=== PATIENT | female | born 1990 | race Caucasian/White ===

== ENCOUNTER 2016-07-07 22:32 | Emergency (ER) | payer SELFPAY ==
[~2016-07-07] VITALS: Ht 157.5 cm; Wt 81.0 kg
[~2016-07-07 22:32] MED LIST: AMOXICILLIN500 MG PO; CIPROFLOXACN500 MG PO; ULTRAM50 M1 PO
[2016-07-08] MEDS ORDERED: IMITREX25 MG PO (00:20)
[2016-07-08 00:52] VITALS: BP 128/80
== END 2016-07-08 00:52 | disposition home or self-care (01) | DRG 103 ==
LOC: ED 22:32
DX: G43.909 Migraine, unspecified, not intractable, without status migrainosus (principal)

== ENCOUNTER 2017-03-09 15:37 | Emergency (ER) | payer SELFPAY ==
[~2017-03-09] VITALS: Ht 157.5 cm; Wt 86.8 kg
[~2017-03-09 15:37] MED LIST changes: +IMITREX25 MG PO
[2017-03-09 17:09] LABS: HEMATOCRIT 36.7 % (37.0-47.0); HEMOGLOBIN 12.4 g/dl (12.0-16.0); IMMATURE GRANULOCYTES 0.3 % (0.0-1.0); MEAN CELL VOLUME 91.8 fL CALC (80.0-100.0); MEAN CORPUSCULAR HGB CONC 33.8 g/L CALC (32.0-36.0); NEUT# 6.4 thou/uL (2.00-7.15)
[2017-03-09 18:30] LABS: URINE BILIRUBIN - DIPSTICK NEGATIVE (NEGATIVE); URINE BLOOD DIPSTICK TRACE-INTACT (NEGATIVE); URINE CLARITY CLEAR; URINE COLOR YELLOW; URINE GLUCOSE - DIPSTICK NEGATIVE (NEGATIVE); URINE KETONE NEGATIVE (NEGATIVE); URINE LEUK ESTERASE TRACE (NEGATIVE); URINE NITRITE - DIPSTICK NEGATIVE (Negative); URINE PH 6.5 (4.5-8.0); URINE PROTEIN - DIPSTICK NEGATIVE (NEG-TRACE); URINE SPECIFIC GRAVITY 1.015
[2017-03-09] MEDS ORDERED: BENTYL20 MG PO (18:36)
[2017-03-09 18:39] VITALS: BP 115/69
== END 2017-03-09 18:50 | disposition home or self-care (01) | DRG 392 ==
LOC: ED 15:37
PROVIDERS: Emergency Medicine
DX: R10.32 Left lower quadrant pain (principal); R19.7 Diarrhea, unspecified

== ENCOUNTER 2017-04-09 02:02 | Emergency (ER) | payer SELFPAY ==
[~2017-04-09] VITALS: Ht 157.5 cm; Wt 100.0 kg
[~2017-04-09 02:02] MED LIST changes: +BENTYL20 MG PO
[2017-04-09 02:57] LABS: URINE BILIRUBIN - DIPSTICK NEGATIVE (NEGATIVE); URINE BLOOD DIPSTICK MODERATE (NEGATIVE); URINE COLOR YELLOW; URINE GLUCOSE - DIPSTICK NEGATIVE (NEGATIVE); URINE KETONE NEGATIVE (NEGATIVE); URINE LEUK ESTERASE NEGATIVE (NEGATIVE); URINE NITRITE - DIPSTICK NEGATIVE (Negative); URINE PH 5.5 (4.5-8.0); URINE PROTEIN - DIPSTICK NEGATIVE (NEG-TRACE); URINE SPECIFIC GRAVITY 1.025
[2017-04-09 02:58] LABS: URINE CLARITY CLOUDY
[2017-04-09] MEDS ORDERED: ULTRAM50 M1 PO (03:04)
[2017-04-09] MEDS ORDERED: AMOXICILLIN500 MG PO (03:04)
[2017-04-09 03:05] LABS: URINE BACTERIA FEW hpf; URINE MUCUS FEW hpf (NONE-FEW); URINE SQUAMOUS EPITHELIAL CELL MODERATE EPI/hpf (0-FEW)
[2017-04-09 03:22] VITALS: BP 124/80
== END 2017-04-09 03:35 | disposition home or self-care (01) | DRG 158 ==
LOC: ED 02:02
PROVIDERS: Emergency Medicine
DX: K04.7 Periapical abscess without sinus (principal); N39.0 Urinary tract infection, site not specified; R50.9 Fever, unspecified

== ENCOUNTER 2021-08-09 21:07 | Emergency (ER) | payer SELFPAY ==
[~2021-08-09] VITALS: Ht 157.5 cm; Wt 100.0 kg
[2021-08-09 21:22] VITALS: BP 124/79
[2021-08-09 21:47] LABS: URINE BILIRUBIN - DIPSTICK NEGATIVE (NEGATIVE); URINE BLOOD DIPSTICK LARGE (NEGATIVE); URINE COLOR YELLOW; URINE GLUCOSE - DIPSTICK NEGATIVE (NEGATIVE); URINE KETONE NEGATIVE (NEGATIVE); URINE LEUK ESTERASE TRACE (NEGATIVE); URINE PH 5.5 (4.5-8.0); URINE PROTEIN - DIPSTICK 100 mg/dL (NEG-TRACE); URINE SPECIFIC GRAVITY >=1.030; URINE UROBILINOGEN - DIPSTICK 0.2 E.U./dL (0.2)
[2021-08-09 21:48] LABS: URINE NITRITE - DIPSTICK POSITIVE (Negative)
[2021-08-09 21:52] LABS: URINE BACTERIA FEW hpf; URINE SQUAMOUS EPITHELIAL CELL FEW EPI/hpf (0-FEW); URINE WBC 50-100 WBC/hpf (0-5)
[2021-08-09 21:56] LABS: HEMATOCRIT 40.7 % (37.0-47.0); HEMOGLOBIN 12.7 g/dl (12.0-16.0); IMMATURE GRANULOCYTES 0.2 % (0.0-5.0); MEAN CELL VOLUME 95.5 fL CALC (80.0-100.0); MEAN CORPUSCULAR HGB 29.8 pG CALC (26.0-32.0); MEAN CORPUSCULAR HGB CONC 31.2 g/dL CAL (32.0-36.0); NEUT# 9.8 thou/uL (2.00-7.15); RED BLOOD COUNT 4.26 mill/uL (4.20-5.60); RED CELL DISTRI WIDTH 12.3 % (11.5-15.5)
[2021-08-09 22:32] LABS: ALBUMIN 3.9 g/dL (3.2-5.0); ALKALINE PHOSPHATASE 68 u/l (38-126); ANION GAP 9 (6-22 (CALC)); BILIRUBIN, TOTAL 0.5 mg/dL (0.0-1.4); BUN 11 mg/dL (7-17); BUN/CREATININE RATIO 20 (12-20 (CALC)); CARBON DIOXIDE 29 mmol/l (22-30); CHLORIDE 105 mmol/l (95-108); CREATININE 0.6 mg/dL (0.5-1.0); GFR > 60 ML/MIN (>=60 (CALC)); GFR FOR AFR.AMER. > 60 ML/MIN (>=60 (CALC)); POTASSIUM 3.6 mmol/l (3.5-5.1); SGOT/AST 20 u/l (14-36); SODIUM 140 mmol/l (137-146)
[2021-08-09] MEDS ORDERED: BACTRIM DS1 TAB PO (22:51)
[2021-08-09] MEDS ORDERED: PYRIDIUM200 MG PO (22:51)
[2021-08-09 23:18] VITALS: BP 124/79
== END 2021-08-09 23:18 | disposition home or self-care (01) | DRG 690 ==
LOC: ED 21:07
PROVIDERS: Family Medicine
DX: N39.0 Urinary tract infection, site not specified (principal); B96.20 Unspecified Escherichia coli [E. coli] as the cause of diseases classified elsewhere

== ENCOUNTER 2021-09-22 15:02 | Emergency (ER) | payer SELFPAY ==
[~2021-09-22] VITALS: Ht 157.5 cm; Wt 93.0 kg
[2021-09-22] VITALS (9 sets, daily range): BP systolic 85–125; BP diastolic 45–78
[~2021-09-22 15:02] MED LIST changes: +BACTRIM DS1 TAB PO; +PYRIDIUM200 MG PO
[2021-09-22 16:05] LABS: URINE BILIRUBIN - DIPSTICK NEGATIVE (NEGATIVE); URINE BLOOD DIPSTICK SMALL (NEGATIVE); URINE COLOR YELLOW; URINE GLUCOSE - DIPSTICK NEGATIVE (NEGATIVE); URINE KETONE NEGATIVE (NEGATIVE); URINE LEUK ESTERASE NEGATIVE (NEGATIVE); URINE PH 6.5 (4.5-8.0); URINE PROTEIN - DIPSTICK NEGATIVE (NEG-TRACE); URINE SPECIFIC GRAVITY 1.015; URINE UROBILINOGEN - DIPSTICK 0.2 E.U./dL (0.2)
[2021-09-22 16:09] LABS: URINE NITRITE - DIPSTICK NEGATIVE (Negative)
[2021-09-22 16:16] LABS: URINE SQUAMOUS EPITHELIAL CELL FEW EPI/hpf (0-FEW); URINE WBC 0-2 WBC/hpf (0-5)
[2021-09-22 16:19] LABS: HEMATOCRIT 39.2 % (37.0-47.0); HEMOGLOBIN 12.7 g/dl (12.0-16.0); IMMATURE GRANULOCYTES 0.1 % (0.0-5.0); MEAN CELL VOLUME 94.9 fL CALC (80.0-100.0); MEAN CORPUSCULAR HGB 30.8 pG CALC (26.0-32.0); MEAN CORPUSCULAR HGB CONC 32.4 g/dL CAL (32.0-36.0); NEUT# 4.74 thou/uL (2.00-7.15); RED BLOOD COUNT 4.13 mill/uL (4.20-5.60)
[2021-09-22] MEDS ORDERED: TAMSULOSIN0.4 MG PO (17:37)
[2021-09-22] MEDS ORDERED: OXYCODONE5 M1 PO (17:37)
[2021-09-22 18:27] LABS: ALBUMIN 3.7 g/dL (3.2-5.0); ALKALINE PHOSPHATASE 64 u/l (38-126); ANION GAP 8 (6-22 (CALC)); BUN 8 mg/dL (7-17); BUN/CREATININE RATIO 14 (12-20 (CALC)); CARBON DIOXIDE 30 mmol/l (22-30); CHLORIDE 106 mmol/l (95-108); CREATININE 0.6 mg/dL (0.5-1.0); GFR FOR AFR.AMER. > 60 ML/MIN (>=60 (CALC)); GFR OTHER RACES > 60 ML/MIN (>=60 (CALC)); LIPASE 41 u/l (23-300); POTASSIUM 4.1 mmol/l (3.5-5.1); SGOT/AST 15 u/l (14-36); SODIUM 139 mmol/l (137-146); TOTAL PROTEIN 6.7 g/dL (6.3-8.2)
[2021-09-22 18:28] LABS: BILIRUBIN, TOTAL 0.2 mg/dL (0.0-1.4)
== END 2021-09-22 17:56 | disposition home or self-care (01) | DRG 694 ==
LOC: ED 15:02
PROVIDERS: Nurse Practitioner
DX: N20.0 Calculus of kidney (principal)

== ENCOUNTER 2022-01-28 17:10 | Emergency (ER) | payer SELFPAY ==
[~2022-01-28] VITALS: Ht 157.5 cm; Wt 80.0 kg
[2022-01-28] VITALS (9 sets, daily range): BP systolic 80–135; BP diastolic 44–79
[~2022-01-28 17:10] MED LIST changes: +OXYCODONE5 M1 PO; +TAMSULOSIN0.4 MG PO
[2022-01-28] MEDS ORDERED: BIRTH CONTROL (17:58)
== END 2022-01-28 19:37 | disposition home or self-care (01) | DRG 556 ==
LOC: ED 17:10
DX: M25.562 Pain in left knee (principal)

== ENCOUNTER 2023-04-14 11:34 | Emergency (ER) | payer SELFPAY ==
[~2023-04-14] VITALS: Ht 157.5 cm; Wt 93.1 kg
[~2023-04-14 11:34] MED LIST changes: +BIRTH CONTROL
[2023-04-14 11:42] VITALS: BP 135/91
== END 2023-04-14 12:55 | disposition left against medical advice (07) | DRG 951 ==
LOC: ED 11:34 → LWOBS 12:51 → ED 12:55
DX: Z53.21 Procedure and treatment not carried out due to patient leaving prior to being seen by health care provider (principal)

== ENCOUNTER 2023-05-30 10:25 | Emergency (ER) | payer SELFPAY ==
[~2023-05-30] VITALS: Ht 157.5 cm; Wt 94.0 kg
[2023-05-30 12:33] VITALS: BP 100/71
[2023-05-30 12:45] VITALS: BP 119/73
[2023-05-30] MEDS ORDERED: MEDDOSEPAK PO (12:51)
[2023-05-30] MEDS ORDERED: LEVOCETIRIZINE D5 MG PO (12:51)
[2023-05-30] MEDS ORDERED: ALLERGY RE50 MCG/ACT (12:51)
[2023-05-30 13:00] VITALS: BP 122/80
== END 2023-05-30 13:03 | disposition home or self-care (01) | DRG 153 ==
LOC: ED 10:25
DX: J06.9 Acute upper respiratory infection, unspecified (principal); Z20.822 Contact with and (suspected) exposure to COVID-19